=== PATIENT | female | born 1985 | race Caucasian/White ===

== ENCOUNTER 2017-01-14 00:14 | Emergency (ER) | payer MEDICAID ==
[2017-01-14] MEDS ORDERED: diphenhydrAMINE INJ 50 MG/ML VIAL IVP STA (00:32)
[2017-01-14] MEDS ORDERED: KETOROLAC 30 MG/ML VIAL IVP STA (00:32)
[2017-01-14] MEDS ORDERED: PROMETHAZINE INJ 25 MG in SODIUM CHLORIDE 0.9% 50 ML IV STA (00:32)
[2017-01-14] MEDS ORDERED: PROMETHAZINE 25 MG/1 ML VIAL ONE (00:36)
[2017-01-14] MEDS ORDERED: diphenhydrAMINE INJ 50 MG/ML VIAL ONE (00:36)
[2017-01-14] MEDS ORDERED: KETOROLAC 30 MG/ML VIAL ONE (00:36)
== END 2017-01-14 01:57 | disposition home or self-care (01) ==
DX: R51 Headache (principal); Z87.891 Personal history of nicotine dependence

== ENCOUNTER 2018-10-04 17:43 | Emergency (ER) | payer SELFPAY ==
[2018-10-04] MEDS ORDERED: diphenhydrAMINE INJ 50 MG/ML VIAL IVP STA (18:02)
[2018-10-04] MEDS ORDERED: KETOROLAC 60 MG/2 ML VIAL IVP STA (18:02)
[2018-10-04] MEDS ORDERED: PROMETHAZINE INJ 25 MG in SODIUM CHLORIDE 0.9% 50 ML IV STA (18:02)
--- NOTE | 2018-10-04 18:05 | ED Physician Documentation ---
PD HPI HEADACHE - Stated complaint Stated Complaint: MIGRAINE - Chief complaint Chief Complaint: Neuro - History obtained from History obtained from: Patient - History of Present Illness Timing - onset: Today (She had a gradual onset Global headache similar to prior migraines which she gets several times a year. This 1 is the worst she has had in a while but not the worst ever. She vomited once and she is light sensitive. No fevers or recent travel. 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 HEENT: Myringotomy (tubes) - Present Medications Home Medications: Ambulatory Orders Medication Instructions Recorded Confirmed Omeprazole [PriLOSEC] 20 mg PO DAILY 09/05/16 10/17/16 Albuterol Sulfate [Proair Hfa 1 puffs PO DAILY 09/11/16 10/17/16 Inhaler] Phenylephrine HCl [Nasal 10 mg PO DAILY 10/13/16 10/17/16 Decongestant PE] SUMAtriptan [Imitrex] 25 mg PO BID PRN #10 tablet 10/04/18 - Allergies Allergies/Adverse Reactions: Allergies Allergy/AdvReac Type Severity Reaction Status Date / Time acetaminophen [From Vicodin] Allergy Unknown Verified 10/04/18 17:52 adhesive Allergy Unknown Verified 10/04/18 17:52 codeine Allergy Unknown Verified 10/04/18 17:52 hydrocodone bitartrate * Allergy Unknown Verified 10/04/18 17:52 [From Vicodin] iron Allergy Unknown Verified 10/04/18 17:52 oxycodone HCl * Allergy Hives Verified 10/04/18 17:52 [From Percocet] Penicillins Allergy Unknown Verified 10/04/18 17:52 hydromorphone HCl * AdvReac Nausea Verified 10/04/18 17:52 [From Dilaudid] clavulonate Allergy Unknown Uncoded 10/04/18 17:52 - Social History Does the pt smoke?: No Smoking Status: Former smoker Does the pt drink ETOH?: No Does the pt have substance abuse?: No - Immunizations Immunizations are current?: Yes - POLST Patient has POLST: No PD ED PE NORMAL - Vitals Vital signs reviewed: Yes - General General: Alert and oriented X 3, No acute distress - HEENT HEENT: PERRL, EOMI - Neck Neck: Supple, no meningeal sign, No bony TTP - Neuro Neuro: Alert and 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 As such I doubt subarachnoid hemorrhage. There are no infectious symptoms such as fever or stiff neck to make me suspect meningitis. No carbon monoxide exposure by history. After the administration of IV Toradol, fluids, Benadryl, and Phenergan she was feeling much better and requested discharge. Departure - Departure Disposition: 01 Home, Self Care Clinical Impression: Migraine Qualifiers: Migraine type: with aura Status migrainosus presence: with status migrainosus Intractability: not intractable Qualified Code(s): G43.101 - Migraine with aura, not intractable, with status migrainosus Condition: Good Record reviewed to determine appropriate education?: Yes Instructions: ED Headache Migraine Prescriptions: SUMAtriptan [Imitrex] 25 mg PO BID PRN #10 tablet PRN Reason: Headache Comments: Call your doctor to arrange a follow-up appointment, make the next available appointment. In the interim, return anytime if worse or if new symptoms develop. Your blood pressure was elevated today on check into the emergency department. This does not mean that you have hypertension, it is a common phenomenon to come to the emergency department and have elevated blood pressure. I recommend that you see your primary care physician within the week to have it rechecked when you are feeling better.
[2018-10-04] MEDS ORDERED: SODIUM CHLORIDE 0.9% 1,000 ML IV ONE (18:09)
[2018-10-04 18:55] VITALS: BP 155/89
== END 2018-10-04 19:17 | disposition home or self-care (01) ==
LOC: ED 17:43
DX: G43.101 Migraine with aura, not intractable, with status migrainosus (principal); R03.0 Elevated blood-pressure reading, without diagnosis of hypertension; Z87.891 Personal history of nicotine dependence
CPT/HCPCS: 96365; 96375; 99283; J1200; J7040

== ENCOUNTER 2018-11-14 19:23 | Emergency (ER) | payer SELFPAY ==
[2018-11-14] MEDS ORDERED: ALBUTEROL NEB 2.5 MG/3 ML INH STA (20:57)
--- NOTE | 2018-11-14 20:58 | XRAY Report ---
Reason: cough Procedure Date: 11/14/2018 Accession Number: [id number] / [id number] Procedure: XR - Chest 2 View X-Ray CPT Code: 14973 FULL RESULT: EXAM: CHEST RADIOGRAPHY EXAM DATE: 11/14/2018 08:43 PM. CLINICAL HISTORY: Cough for 3 days. COMPARISON: CHEST 2 VIEW PA/LAT 09/01/2015 10:37 PM. TECHNIQUE: 2 views. FINDINGS: Lungs/Pleura: No focal opacities evident. No pleural effusion. No pneumothorax. Normal volumes. Mediastinum: Heart and mediastinal contours are unremarkable. Other: Minimal S-shaped scoliosis. IMPRESSION: Clear lungs. RADIA
--- NOTE | 2018-11-14 21:06 | ED Physician Documentation ---
PD HPI URI - Stated complaint Stated Complaint: SOA - Chief complaint Chief Complaint: Resp - History obtained from History obtained from: Patient, Family - History of Present Illness Timing - onset: How many days ago (3) Timing duration: Days (3) Timing details: Gradual onset Pain level max: 3 Pain level now: 2 Associated symptoms: Fever (subjective), Chills, Sweats, Nasal congestion, Rhinorrhea, Sore throat, Dry cough, Dyspnea (wheezing). No: Sinus pain, Hemoptysis, Chest pain Contributing factors: Sick contact, COPD / asthma (out of inhaler x 1 month) Improves by: Rest Worsened by: Activity, Breathing Similar symptoms before: Diagnosis (URI, asthma) Recently seen: Not recently seen Review of Systems Ten Systems: 10 systems reviewed and negative Constitutional: denies: Fever, Chills Ears: denies: Ear pain Nose: reports: Rhinorrhea / runny nose, Congestion Throat: reports: Sore throat Respiratory: reports: Cough, Wheezing GI: denies: Abdominal Pain, Nausea, Vomiting, Diarrhea : denies: Dysuria, Now EGA Skin: denies: Rash Musculoskeletal: denies: Neck pain, Back pain Neurologic: denies: Focal weakness, Numbness, Headache PD PAST MEDICAL HISTORY - Past Medical History Past Medical History: Yes Cardiovascular: None Respiratory: Asthma Endocrine/Autoimmune: None HEENT: Chronic hearing loss Musculoskeletal: Chronic back pain - Past Surgical History 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, 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 HEENT: Myringotomy (tubes) - Present Medications Home Medications: Ambulatory Orders Medication Instructions Recorded Confirmed Omeprazole [PriLOSEC] 20 mg PO DAILY 09/05/16 11/14/18 Albuterol Sulfate [Proair Hfa 1 puffs PO DAILY 09/11/16 11/14/18 Inhaler] Phenylephrine HCl [Nasal 10 mg PO DAILY 10/13/16 11/14/18 Decongestant PE] SUMAtriptan [Imitrex] 25 mg PO BID PRN #10 tablet 10/04/18 11/14/18 Albuterol Sulf [Ventolin Hfa 1 - 2 puffs INH Q4HR PRN #1 inhaler 11/14/18 Inhaler] Benzonatate [Tessalon Perle] 100 - 200 mg PO TID PRN #30 capsule 01/25/19 - Allergies Allergies/Adverse Reactions: Allergies Allergy/AdvReac Type Severity Reaction Status Date / Time acetaminophen [From Vicodin] Allergy Unknown Verified 11/14/18 19:35 adhesive Allergy Unknown Verified 11/14/18 19:35 codeine Allergy Unknown Verified 11/14/18 19:35 hydrocodone bitartrate * Allergy Unknown Verified 11/14/18 19:35 [From Vicodin] iron Allergy Unknown Verified 11/14/18 19:35 oxycodone HCl * Allergy Hives Verified 11/14/18 19:35 [From Percocet] Penicillins Allergy Unknown Verified 11/14/18 19:35 hydromorphone HCl * AdvReac Nausea Verified 11/14/18 19:35 [From Dilaudid] clavulonate Allergy Unknown Uncoded 11/14/18 19:35 - Social History Does the pt smoke?: No Smoking Status: Never smoker Does the pt drink ETOH?: No Does the pt have substance abuse?: No Substance Use and Type: Marijuana - Immunizations Immunizations are current?: Yes - POLST Patient has POLST: No PD ED PE NORMAL - Vitals Vital signs reviewed: Yes - General General: Alert and oriented X 3, No acute distress - HEENT HEENT: Ears normal, Moist mucous membranes, Pharynx benign - Neck Neck: Supple, no meningeal sign, No bony TTP - Cardiac Cardiac: RRR, Strong equal pulses - Respiratory Respiratory: No respiratory distress, Other (Decreased breath sounds bilaterally, mild wheezing.) - Abdomen Abdomen: Soft, Non tender, Non distended - Back Back: No CVA TTP - Derm Derm: Warm and dry - Neuro Neuro: Alert and oriented X 3 - Psych Psych: Normal mood, Normal affect Results - Vitals Vitals: Vital Signs - 24 hr 11/14/18 11/14/18 19:29 21:45 Temperature 36.4 C L 37.1 C Heart Rate 80 89 Respiratory 20 16 Rate Blood Pressure 134/80 H 153/89 H O2 Saturation 98 95 Oxygen O2 Source Room air - Rads (name of study) cxr Radiology: Prelim report reviewed, EMP read contemporaneously, See rad report (No acute disease ) PD MEDICAL DECISION MAKING - ED course Complexity details: reviewed results, re-evaluated patient, considered differential, d/w patient ED course: 33-year-old female with what appears to be a viral upper respiratory infection with secondary asthma exacerbation. Feels better after nebulizer treatment. No hypoxia or respiratory distress. Denies any possibility of . Will refill her inhaler for her and place her on cough medication for home. She is well-appearing, nontoxic. No evidence of pneumonia. Patient counseled regarding signs and symptoms for which I believe and urgent re-evaluation would be necessary. Patient with good understanding of and agreement to plan and is comfortable going home at this time This document was made in part using voice recognition software. While efforts are made to proofread this document, sound alike and grammatical errors may occur. Departure - Departure Disposition: Home, Self Care Clinical Impression: Viral URI Asthma Qualifiers: Asthma severity: unspecified severity Asthma persistence: unspecified Asthma complication type: unspecified Qualified Code(s): J45.909 - Unspecified asthma, uncomplicated Condition: Good Instructions: ED URI Viral Follow-Up: Mckenzie Lyman MD [Primary Care Provider] - Within 1 week Prescriptions: Albuterol Sulf [Ventolin Hfa Inhaler] 1 - 2 puffs INH Q4HR PRN #1 inhaler PRN Reason: Shortness Of Air/Wheezing Benzonatate [Tessalon Perle] 100 - 200 mg PO TID PRN #30 capsule PRN Reason: Cough Comments: Drink plenty of fluids and rest. Return if you worsen. Use the inhaler as prescribed. Forms: Activity restrictions Discharge Date/Time: 11/14/18 22:02
[2018-11-14 21:46] VITALS: BP 153/89
== END 2018-11-14 22:02 | disposition home or self-care (01) ==
LOC: ED 19:23
DX: J06.9 Acute upper respiratory infection, unspecified (principal); B97.89 Other viral agents as the cause of diseases classified elsewhere; J45.901 Unspecified asthma with (acute) exacerbation
CPT/HCPCS: 71046; 94640; 99283

== ENCOUNTER 2021-10-02 16:57 | Emergency (ER) | payer SELFPAY ==
--- NOTE | 2021-10-02 17:43 | ED Physician Documentation ---
History of Present Illness - Stated complaint Stated Complaint: BACK/NECK PX - Chief complaint Chief Complaint: Back Pain - Additonal information Additional information: 36-year-old female presents the emergency department for evaluation of acute on chronic upper back and neck pain. She reports that pain in her upper back has been present for about 3 months but progressively worse as she has developed a lump in her upper back that is gone larger in size. Anytime she puts pressure on this lump it causes a shooting pain into both of her arms as well as spasm in the upper back. Her primary doctor has ordered an ultrasound of the lump but due to insurance concerns has been unable to get this scheduled. No fevers. No falls or trauma. She has multiple medication allergies and has been using heat and ibuprofen with minimal relief. 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 HEENT: Myringotomy (tubes) - Present Medications Home Medications: Ambulatory Orders Medication Instructions Recorded Confirmed Omeprazole [PriLOSEC] 20 mg PO DAILY 09/05/16 10/02/21 Albuterol Sulfate [Proair Hfa 1 puffs PO DAILY 09/11/16 10/02/21 Inhaler] Albuterol Sulf [Ventolin Hfa 1 - 2 puffs INH Q4HR PRN #1 inhaler 11/14/18 10/02/21 Inhaler] methocarbamoL [Methocarbamol] 750 mg PO BID PRN #15 tablet 10/02/21 - Allergies Allergies/Adverse Reactions: Allergies Allergy/AdvReac Type Severity Reaction Status Date / Time acetaminophen [From Vicodin] Allergy Unknown Verified 10/02/21 17:10 adhesive Allergy Unknown Verified 10/02/21 17:10 codeine Allergy Unknown Verified 10/02/21 17:10 hydrocodone bitartrate * Allergy Unknown Verified 10/02/21 17:10 [From Vicodin] iron Allergy Unknown Verified 10/02/21 17:10 oxycodone HCl * Allergy Hives Verified 10/02/21 17:10 [From Percocet] Penicillins Allergy Unknown Verified 10/02/21 17:10 hydromorphone HCl * AdvReac Nausea Verified 10/02/21 17:10 [From Dilaudid] clavulonate Allergy Unknown Uncoded 10/02/21 17:10 - Social History Does the pt smoke?: No Smoking Status: Never smoker Does the pt drink ETOH?: No Does the pt have substance abuse?: No - Immunizations Immunizations are current?: Yes - POLST Patient has POLST: No PD ED PE EXPANDED - General General: Alert, No acute distress - Neck Neck: Supple w/out meningeal sx. No: Adenopathy, Soft tissue TTP, Bony TTP, Limited ROM - Cardiac Cardiac: Regular Rate, Radial strong equal, Pedal strong equal, Cap refill < 2 sec. No: Murmur Present - Derm Derm: Other (large 6x6 cm firm, non-mobile mass upper back at junction of nect/cervical spine. no erythema. no flucutance) - Extremities Extremities: Other (motor strength 5/5 BUE) Results - Vitals Vitals: Vital Signs - 24 hr 10/02/21 16:59 Temperature 36.6 C Heart Rate 91 Respiratory 16 Rate Blood Pressure 165/106 H O2 Saturation 100 Oxygen O2 Source Room air - Rads (name of study) soft tissue chest Radiology: Final report received (Avoid hypoechoic lesion measuring 1.3 x 1.6 cm in greatest dimension. Does not demonstrate vascularity. May represent a lipoma) PD MEDICAL DECISION MAKING - ED course Complexity details: reviewed results, re-evaluated patient, considered differential, d/w patient ED course: 36-year-old female presents emergency department for evaluation of upper back and neck pain in the area where a soft tissue mass has been growing over the last few months. On initial evaluation it was highly suspicious for a lipoma. Soft tissue ultrasound does confirm a hypoechoic ovoid lesion without vascularity most likely a lipoma. Patient has had this increase in size markedly over the last few months. Is likely putting pressure on the peripheral nerves and neck causing the pain. A limited prescription for methocarbamol will be sent to the pharmacy. Patient advised to establish with a primary care doctor to obtain referral for surgery for lipoma excision. Emergent return precautions were discussed. Departure - Departure Disposition: 01 Home, Self Care Clinical Impression: Lipoma Qualifiers: Lipoma location: neck Qualified Code(s): D17.0 - Benign lipomatous neoplasm of skin and subcutaneous tissue of head, face and neck Condition: Stable Record reviewed to determine appropriate education?: Yes Prescriptions: methocarbamoL [Methocarbamol] 750 mg PO BID PRN #15 tablet PRN Reason: Spasms Comments: Crystal you are seen in the ER today for upper back and neck pain at the site where a mass has been growing over the last few months. The ultrasound today suggest that it is most likely a lipoma. I suspect that is getting a large enough to put pressure on the tissues causing pain. In order to address this in the long-term a primary care provider will need to make a referral for you to go to a surgeon to have it excised. Please establish with a primary care doctor as soon as you can to obtain this referral. Continue to use Tylenol or ibuprofen for pain control. For the spasms that you develop I have sent a limited prescription for methocarbamol to the pharmacy. Please return to the ER if you have any pain in your neck that causes weakness in your arms or difficulty breathing or any concerns of infection
[2021-10-02] MEDS ORDERED: HYDROmorphone 1 MG/ML CARPUJECT IM STA (17:44)
[2021-10-02] MEDS ORDERED: ONDANSETRON ODT 4 MG TABLET TL STA (17:45)
--- NOTE | 2021-10-02 20:12 | Ultrasound Report ---
PROCEDURE: Chest INDICATIONS: LUMP UPPER BACK ? LIPOMA TECHNIQUE: Real-time scanning was performed of the dorsal soft tissues. COMPARISON: None. FINDINGS: An ovoid, hypoechoic lesion is seen in the area of clinical concern, measuring 1.3 x 0.6 x 1.6 cm, wh ich does not demonstrate internal vascularity. IMPRESSION: 1. Ovoid hypoechoic lesion in the area of clinical concern as detailed above, which may represent a l ipoma. Reviewed by: Marlo Lacy MD on 10/02/2021 8:11 PM PST Approved by: Marlo Lacy MD on 10/02/2021 8:11 PM PST Station ID: [id number]
[2021-10-02 20:33] VITALS: BP 163/94
== END 2021-10-02 20:34 | disposition home or self-care (01) ==
LOC: ED 16:57
DX: D17.0 Benign lipomatous neoplasm of skin and subcutaneous tissue of head, face and neck (principal); M54.6 Pain in thoracic spine; M54.2 Cervicalgia
CPT/HCPCS: 76604; 96372; 99283; 99284; J1170; Q0162

== ENCOUNTER 2022-01-26 13:17 | Outpatient (CLI) | payer OTHER | END 2022-01-26 13:18 | disposition home or self-care (01) | LOC: LAB.N 13:17 | PROVIDERS: ATTEND Surgery | DX: Z01.812 Encounter for preprocedural laboratory examination (principal); D17.0 Benign lipomatous neoplasm of skin and subcutaneous tissue of head, face and neck; Z20.822 Contact with and (suspected) exposure to COVID-19 ==

== ENCOUNTER 2022-01-29 13:29 | Day surgery (SDC) | payer OTHER ==
[2022-01-29] MEDS ORDERED: CEFAZOLIN SODIUM IN 0.9 % NACL 2 GM/50 ML BAG IV ONE (13:44)
--- NOTE | 2022-01-29 13:44 | ANESTHESIA ---
Pre-Anesthesia VS, & Labs - Diagnosis painful posterior neck lipoma - Procedure excision posterior neck lipoma Height: 5 ft 7 in - NPO >8 hours - Is Patient ?: Waiver signed - Lab Results Lab results reviewed: Yes Home Medications and Allergies Home Medications: Ambulatory Orders Ascorbic Acid [Vitamin C] 500 mg PO DAILY 01/22/22 Cetirizine [ZyrTEC] 10 mg PO DAILY 01/22/22 Cholecalciferol [Vitamin D3] 25 mcg PO DAILY 01/22/22 Ibuprofen [Motrin] 600 mg PO Q6H PRN 01/22/22 Pnv No.95/Ferrous Fum/Folic AC [ Caplet] 1 each PO DAILY 01/22/22 RX: Losartan Potassium 25 mg PO DAILY 01/22/22 methocarbamoL [Methocarbamol] 500 mg PO QID PRN 01/22/22 Omeprazole [PriLOSEC] 20 mg PO DAILY 09/05/16 Ascorbic Acid [Vitamin C] 500 mg PO DAILY 01/22/22 Cetirizine [ZyrTEC] 10 mg PO DAILY 01/22/22 Cholecalciferol [Vitamin D3] 25 mcg PO DAILY 01/22/22 Ibuprofen [Motrin] 600 mg PO Q6H PRN 01/22/22 Losartan Potassium 25 mg PO DAILY 01/22/22 Pnv No.95/Ferrous Fum/Folic AC [ Caplet] 1 each PO DAILY 01/22/22 methocarbamoL [Methocarbamol] 500 mg PO QID PRN 01/22/22 Allergies/Adverse Reactions: Allergies Allergy/AdvReac Type Severity Reaction Status Date / Time acetaminophen [From Vicodin] Allergy Unknown Verified 10/02/21 17:10 adhesive Allergy Rash Verified 01/22/22 10:57 codeine Allergy Rash Verified 01/22/22 10:57 hydrocodone bitartrate * Allergy Rash Verified 01/22/22 10:57 [From Vicodin] iron Allergy Rash Verified 01/22/22 10:57 oxycodone HCl * Allergy Hives Verified 10/02/21 17:10 [From Percocet] Penicillins Allergy Rash Verified 01/22/22 10:57 hydromorphone HCl * AdvReac Nausea Verified 10/02/21 17:10 [From Dilaudid] clavulonate Allergy Rash Uncoded 01/22/22 10:57 iron AdvReac Rash Uncoded 01/26/22 12:09 Anes History & Medical History - Anesthetic History Anesthesia Complications: reports: No previous complications Family history of Anesthesia Complications: Denies Family history of Malignant Hyperthermia: Denies - Medical History Cardiovascular: reports: Hypertension Pulmonary: reports: Asthma Gastrointestinal: reports: GERD Urinary: reports: Chronic bladder infection Musculoskeletal: reports: Chronic back pain Endocrine/Autoimmune: reports: None Skin: reports: None Smoking Status: Never smoker - Surgical History Eyes Ears Nose Throat (EENT): reports: Myringotomy (tubes) Gynecologic: reports: Tubal ligation Dermatologic: reports: Skin grafts Exam General: Alert, Oriented x3, Cooperative Dental: WNL Mouth Openin Fingerbreadth Neck Mobility: Normal Mallampati classification: II Thyromental Distance: 4-6 cm Respiratory: Lungs clear, Normal breath sounds, No respiratory distress Cardiovascular: Regular rate Neurological: Normal speech Mental/Cognitive Status: Alert/Oriented X3, Normal for patient Plan Anesthesia Type: General Consent for Procedure(s) Verified and Reviewed: Yes Code Status: Attempt Resuscitation ASA classification: 2-Mild systemic disease Is this case an emergency?: No
[2022-01-29] MEDS ORDERED: MIDAZOLAM 2 MG/2 ML VIAL ONE (13:48)
[2022-01-29] MEDS ORDERED: LIDOCAINE-MPF 2% 5 ML VIAL ONE (13:49)
[2022-01-29] MEDS ORDERED: fentaNYL 100 MCG/2 ML VIAL ONE (13:49)
[2022-01-29] MEDS ORDERED: LACTATED RINGERS 1,000 ML IV ONE ×2 (14:01→15:11)
[2022-01-29] MEDS ORDERED: METOCLOPRAMIDE 10 MG/2 ML VIAL IVP PRN (14:13)
[2022-01-29] MEDS ORDERED: NALOXONE 0.4 MG/ML VIAL IVP PRN (14:13)
[2022-01-29] MEDS ORDERED: ATROPINE ABBOJECT 1 MG/10 ML SYRINGE IVP PRN (14:13)
[2022-01-29] MEDS ORDERED: ONDANSETRON 4 MG/2 ML VIAL IVP PRN (14:13)
[2022-01-29] MEDS ORDERED: HYDROmorphone 0.5 MG/0.5 ML SYRINGE IVP PRN (14:13)
[2022-01-29] MEDS ORDERED: MORPHINE 2 MG/ML CARPUJECT IVP PRN (14:13)
[2022-01-29] MEDS ORDERED: ePHEDrine 50 MG/ML VIAL IVP PRN (14:13)
[2022-01-29] MEDS ORDERED: fentaNYL 100 MCG/2 ML VIAL IVP PRN (14:13)
[2022-01-29] MEDS ORDERED: LIDOCAINE MPF 2%-EPI 1:200000 20 ML VIAL ONE (14:13)
[2022-01-29] MEDS ORDERED: BUPIVACAINE 0.25% PF 30 ML VIAL ONE (14:13)
[2022-01-29] MEDS ORDERED: ONDANSETRON 4 MG/2 ML VIAL ONE (14:47)
[2022-01-29] MEDS ORDERED: DEXAMETHASONE 4 MG/ML VIAL ONE (14:47)
[2022-01-29] MEDS ORDERED: LIDOCAINE 2%-EPI 1:100000 20 ML MDV SUBQ ONE ×2 (14:53)
[2022-01-29] MEDS ORDERED: BUPIVACAINE 0.25% PF 30 ML VIAL SUBQ ONE ×2 (14:53)
[2022-01-29] MEDS ORDERED: LACTATED RINGERS 1,000 ML IV SCH (15:00)
--- NOTE | 2022-01-29 15:08 | OPERATIVE REPORT ---
Operative Report - General Procedure Date: 01/29/22 Planned Procedure: Excision of posterior neck lipoma Pre-Op Diagnosis: Painful posterior neck lipoma Procedure Performed: Excision of posterior neck lipoma Post Op Diagnosis: Painful posterior neck lipoma - Procedure Note Primary Surgeon: Marcella Anesthesia Provider: ANNA Morin Anesthesia Technique: General LMA, Local Pathology: 5 x 3 cm lipomatous mass to pathology in formalin Estimated Blood Loss (mL): 10 Findings: 5 x 3 cm lipomatous mass Complications: None apparent - Other Other Information/Narrative: After obtaining informed consent, the patient is brought the operating room and placed in the supine position on the examination table. Following successful induction of general anesthesia, she was turned to the right lateral decubitus position with appropriate padding of all bony prominences. A timeout was held per scope protocol. All elements of the surgical safety checklist were followed before, during, and after the procedure. The posterior neck region was prepped and draped in the standard surgical fashion. We began the procedure by infiltrating a mixture of local anesthetics directly over the skin into the skin over the lipomatous mass. An incision, previously marked, was created and carried through the skin and subcutaneous tissue to reveal a fairly well-circumscribed 5 x 3 cm x 2 cm lipomatous mass. This was excised sharply. Hemostasis was obtained with cautery. The wound was irrigated with warm saline solution and aspirated free of all fluid and particulate matter. The wound was then closed in 2 layers with Vicryl and Monocryl suture and Dermabond was applied to the skin. All sponge, needle, and instrument counts are correct at the conclusion of the case. The patient was allowed to wake from anesthesia without difficulty and taken to the postanesthesia care unit in good condition.
[2022-01-29] MEDS ORDERED: KETOROLAC 30 MG/ML VIAL ONE (15:10)
--- NOTE | 2022-01-29 15:39 | ANESTHESIA POST OP EVALUATION ---
Anesthesia Post Eval - Post Anesthesia Eval Vitals: Last Vital Signs Temp 37.3 C 01/29/22 15:36 Pulse 71 01/29/22 15:36 Resp 22 01/29/22 15:36 BP 191/94 H 01/29/22 15:36 Pulse Ox 98 01/29/22 15:36 CV Function Including HR & BP: Stable Pain Control: Satisfactory Nausea & Vomiting: Negative Mental Status: Baseline Respiratory Status: Airway Patent Hydration Status: Satisfactory Anesthesia Complications: None
[2022-01-29 15:53] VITALS: BP 188/87
== END 2022-01-29 13:30 | disposition home or self-care (01) ==
LOC: SDS 13:29
PROVIDERS: ATTEND Surgery
PROC: 0JB60ZZ Excision of Chest Subcutaneous Tissue and Fascia, Open Approach (ICD-10-PCS; principal; 2022-01-29 14:30)
DX: D17.0 Benign lipomatous neoplasm of skin and subcutaneous tissue of head, face and neck (principal); J45.909 Unspecified asthma, uncomplicated; Z86.14 Personal history of Methicillin resistant Staphylococcus aureus infection
CPT/HCPCS: 21552; J0690; J7120

== ENCOUNTER 2022-06-26 09:26 | Outpatient (CLI) | payer OTHER | END 2022-06-26 09:27 | disposition home or self-care (01) | LOC: SC 09:26 | PROVIDERS: ATTEND Nurse Practitioner Family | DX: G47.33 Obstructive sleep apnea (adult) (pediatric) (principal); R09.02 Hypoxemia; Z68.41 Body mass index [BMI] 40.0-44.9, adult | CPT/HCPCS: 95806 ==

== ENCOUNTER 2022-07-17 10:49 | Outpatient (CLI) | payer OTHER ==
[2022-07-17 11:39] VITALS: BP 142/98
--- NOTE | 2022-07-17 11:39 | SLEEP CARE CONSULTATION ---
Information from patient questionnaire entered by Natalie Moe. I have reviewed and concur with the information entered by Natalie Moe. This document represents the service I personally performed and the decisions made by me, Yas Pickard ARNP. History of Present Illness Service Date and Time: 07/17/2022 1049 Initial [place] Sleepiness Scale score: 7 (06/05/2022) Current [place] Sleepiness Scale score: 8 (07/17/22) Additional HPI information: CANDELARIO COHEN returns for follow up and results of the recently performed home sleep study. I explained the pathophysiology behind obstructive sleep apnea. We then spent quite a bit of time discussing different treatment options. For mild obstructive sleep apnea, surgery and oral appliance are alternatives to nasal CPAP therapy but in moderate or severe cases, nasal CPAP is the most effective and reliable treatment. Because apnea is primarily in supine position, then positional management therapy could be effective. Methods discussed such as positioning with pillows to prevent supine sleep. I reviewed the impact of weight changes on sleep apnea and strongly recommended losing weight. After some discussion, the patient opted to go with the nasal CPAP therapy. Nasal autoCPAP set at 4-15 cmH20 will be ordered with rationale explained. A manual titration study will be ordered if unable to find optimal pressure with office adjustments. I explained how CPAP machine works and what to expect when using the machine. Using CPAP every night in order to get used to it was emphasized. Patient advised to put CPAP mask on before getting into bed so as not to fall asleep without CPAP. To assist acclimation to CPAP use, it could also be used for a short time during day while reading or watching TV. The patient was instructed to call the CPAP supplier to discuss any mechanical problem that may occur. If the mask given is uncomfortable or is difficult to keep on through the night even with adjustment, contact the CPAP supplier as many will replace with another mask style if notified before 30 days. If snoring or perceives is not getting enough air or too much air from the machine, notify this office. Patient does not drink alcohol. Patient was cautioned about risks of drowsy driving until sleepiness symptoms resolve. Sleep Study - Results Type of Sleep Study: Home sleep study (DONE 06/26/22) Prior sleep studies: No Polysomnography/Home Sleep Study results: Physician Impression: The quality of the study is good. The length of the study is not optimal (< 240 minutes). Please also see the tabulated and graphic data. 1. Obstructive Sleep Apnea-Hypopnea (ICD-10 G47.33), severe, with an AHI of 42.2/hr and taylor SaO2 of 84%. During the study, the patient had 86 apneas (86 obstructive, 0 central, 0 mixed) and 58 hypopneas. The longest episode lasted 108.0 seconds. The respiratory events occurred more frequently during supine sleep (supine AHI was 80.0 and non-supine, 41.89). 2. Hypoxemia (ICD-10 R09.02), mild, with the lowest oxygen saturation of 84 % and 3.7 minutes with SaO2 under 90%. Baseline oxygen saturation was normal (Average oxygen saturation was 94%). Allergies and Home Medications Home medication list reviewed: Yes (started vitamin B; clindamycin for tooth/sinus infection) Allergy and home medication list: Allergies acetaminophen [From Vicodin] Allergy (Verified 10/02/21 17:10) Unknown adhesive Allergy (Verified 01/22/22 10:57) Rash codeine Allergy (Verified 01/22/22 10:57) Rash hydrocodone bitartrate * [From Vicodin] Allergy (Verified 01/22/22 10:57) Rash iron Allergy (Verified 01/22/22 10:57) Rash oxycodone HCl * [From Percocet] Allergy (Verified 10/02/21 17:10) Hives Penicillins Allergy (Verified 01/22/22 10:57) Rash hydromorphone HCl * [From Dilaudid] Adverse Reaction (Verified 10/02/21 17:10) Nausea Review of Systems Review of systems same as previous: Yes (dental or sinus infection) Physical Exam Vital signs obtained and entered by: EMMY GAN Blood Pressure: 142/98 (LEFT ARM ) Cuff size: regular Heart Rate: 87 O2 Saturation: 99 Height: 5 ft 7 in Weight: 252 lb Body Mass Index: 39.4 BMI Classification: Obese Impression and Plan 1. Obstructive Sleep Apnea-Hypopnea Syndrome, severe, with lowest oxygen saturation of 84%. Obviously this is the cause of the patients symptoms of unrefreshed sleep, and excessive daytime sleepiness. Positive pressure therapy could benefit hypertension, anxiety, depression, gastric reflux and asthma. As mentioned above, the patient will be started on nasal autoCPAP therapy with pressure set at 4-15 cmH2O. Compliance guidelines also reviewed. A copy of compliance guidelines will be given for reference at check out. Because the apnea is more severe supine, I instructed to avoid sleeping supine using pillow positioning until able to start CPAP use. * Nasal auto CPAP therapy, pressure at 4-15 cm H2O. * Attempt to lose weight. * Avoid alcohol consumption near bedtime. * Avoid supine sleep until using CPAP. * The patient is again cautioned about driving until sleepiness completely r esolves. * Return one month after CPAP obtained. I will assess response to therapy and compliance at that time. Counseling Topics: Weight loss health impact Visit Type: In Office Time Spent with Patient (minutes): 22 Provider Statement: I spent 100% of the Face to Face Visit with the patient with greater than 50% spent counseling the patient and coordination of care.
== END 2022-07-17 10:50 | disposition home or self-care (01) ==
LOC: SC 10:49
PROVIDERS: ATTEND Nurse Practitioner Family
DX: G47.33 Obstructive sleep apnea (adult) (pediatric) (principal); E66.9 Obesity, unspecified; Z68.39 Body mass index [BMI] 39.0-39.9, adult
CPT/HCPCS: 99212; 99213

== ENCOUNTER 2022-10-09 09:07 | Outpatient (CLI) | payer OTHER ==
--- NOTE | 2022-10-09 09:46 | SLEEP CARE CONSULTATION ---
Information from patient questionnaire entered by Álvaro Valentin. I have reviewed and concur with the information entered by Álvaro Valentin. This document represents the service I personally performed and the decisions made by me, Yas Pickard ARNP. History of Present Illness Service Date and Time: 10/09/2022 0907 Previous diagnosis: Severe, Obstructive Sleep Apnea-Hypopnea Syndrome AHI: 42.2 (in 2021) Reason for follow up: first compliance Equipment type: CPAP (RESMED Airsense 11) Equipment obtained from: [employer] ([employer]) Mask style: Full face Mask brand: Resmed (F20) Backup mask available: Yes (other mask) Last cushion change: 1 month Prior sleep studies: No Type of Sleep Study: Home sleep study (DONE 06/26/22) HPI additional information: CANDELARIO COHEN was diagnosed to have severe, AHI 42.2, obstructive sleep apnea- hypopnea syndrome and returned today for CPAP therapy first compliance follow- up. Sleep Study - Results Type of Sleep Study: Home sleep study (DONE 06/26/22) Prior sleep studies: No CPAP Compliance Data - Data Reviewed with Patient Average duration of nightly device use: 7 hours 3 mins Compliance rate %: 53 (19/30 days used) Current pressure setting (cmH2O): 4-15 (median 8.1, avg 11.7, max 13.2) Average residual AHI: 0.8 Central apnea: 0.1 Obstructive apnea: 0.5 Average large leak: 3.3 lpm Subjective Missed days of use due to: reports: illness (had a cold/hx of allergies and ear infections), other (power outage) Patient concerns: reports: condensation in mask/hose, nasal congestion (due to cold and allergies), other (ear pain). denies: aerophagia, mask discomfort, air blowing in eyes, mask leak noise, dry mouth, nose, throat, epistaxis Observed to snore while using device: No Current pressure setting perceived as: comfortable On therapy, patient: reports: sleeping better, awakening more refreshed, being more awake and alert during the day, more rested overall. denies: drowsiness while driving Initial [place] Sleepiness Scale score: 7 (06/05/2022) Current [place] Sleepiness Scale score: 6 (10/09/22) Allergies and Home Medications Drug allergies reviewed: Yes (as listed in EMR) Home medication list reviewed: Yes (no changes) Review of Systems Review of systems same as previous: Yes (sleep apnea 2021) Physical Exam Vital signs obtained and entered by: ÁLVARO Hernández MA Blood Pressure: 128/82 (LEFT ARM ) Cuff size: long Heart Rate: 82 O2 Saturation: 97 Height: 5 ft 7 in Weight: 255 lb 6.4 oz Body Mass Index: 39.9 BMI Classification: Obese Impression and Plan 1. Obstructive Sleep Apnea-Hypopnea Syndrome, severe, with fair treatment compliance and good apnea control. On CPAP therapy, the patient has better sleep quality and is more rested overall. Patient has been having some problem with nasal congestion because of having a cold and allergies. She was advised by provider at [facility] not to use her CPAP while she was sick because she is prone to ear infections and was having ear pain. She has since resumed CPAP use and is getting good results. The patients pressure will be changed to autoCPAP 8-14 cmH20 to reflect pressures being used. Patient advised to contact me if pressure change is uncomfortable so that it can be adjusted. Goals for apnea control discussed.Patient's apnea severity and rationale for treatment to reduce apnea, improve sleep quality and reduce cardiovascular and cerebrovascular events was reviewed. I also reviewed the benefit of consistent device use of CPAP for hypertension, gastric reflux, depression, anxiety and asthma. 2. Obesity, unspecified. Currently patients BMI is 39.9. Obesity increases the risk of apnea, CPAP pressure requirements and overall health risks especially cardiovascular and diabetes. Thus patient is advised to lose weight. * Change auto CPAP pressure to 8-14 cmH2O * Notify me if snoring with mask or feeling that the pressure is too much or too little * Attempt to lose weight * Call this office if any problems using CPAP * Return for follow up in 1-2 months, or sooner if concerns arise Counseling Topics: Spare mask, Weight loss health impact Visit Type: In Office Time Spent with Patient (minutes): 23 Provider Statement: I spent 100% of the Face to Face Visit with the patient with greater than 50% spent counseling the patient and coordination of care.
[2022-10-09 09:47] VITALS: BP 128/82
== END 2022-10-09 09:08 | disposition home or self-care (01) ==
LOC: SC 09:07
PROVIDERS: ATTEND Nurse Practitioner Family
DX: G47.33 Obstructive sleep apnea (adult) (pediatric) (principal); E66.9 Obesity, unspecified; Z68.39 Body mass index [BMI] 39.0-39.9, adult
CPT/HCPCS: 99212; 99213

== ENCOUNTER 2022-12-11 10:23 | Outpatient (CLI) | payer OTHER ==
[2022-12-11 11:06] VITALS: BP 138/84
--- NOTE | 2022-12-11 11:06 | SLEEP CARE CONSULTATION ---
Information from patient questionnaire entered by Laura Valentin. I have reviewed and concur with the information entered by Laura Valentin. This document represents the service I personally performed and the decisions made by , Yas Pickard ARNP. History of Present Illness Service Date and Time: 12/11/2022 1023 Previous diagnosis: Severe, Obstructive Sleep Apnea-Hypopnea Syndrome AHI: 42.2 (in 2021) Reason for follow up: other (2MONTH F/U) Equipment type: CPAP (RESMED Airsense 11; 08/2022) Equipment obtained from: [employer] (needs to get supplies) Mask style: Full face Backup mask available: No (will keep old mask when replaced) Last cushion change: not since setup Prior sleep studies: No Type of Sleep Study: Home sleep study (DONE 06/26/22) HPI additional information: CANDELARIO COHEN was diagnosed to have severe, AHI 42.2, obstructive sleep apnea- hypopnea syndrome and returned today for CPAP therapy two month follow-up. Sleep Study - Results Type of Sleep Study: Home sleep study (DONE 06/26/22) Prior sleep studies: No CPAP Compliance Data - Data Reviewed with Patient Average duration of nightly device use: 3 hours 58 minutes Compliance rate %: 30 (39/60 days) Current pressure setting (cmH2O): 8-14 Average residual AHI: 0.6 Central apnea: 0.0 Obstructive apnea: 0.4 Subjective Missed days of use due to: reports: mask issues, illness (has allergies) Patient concerns: reports: mask discomfort (mask pushing on face with some pain under right eye), air blowing in eyes, nasal congestion. denies: aerophagia, mask leak noise, condensation in mask/hose, dry mouth, nose, throat, epistaxis Observed to snore while using device: No Current pressure setting perceived as: comfortable On therapy, patient: reports: sleeping better, awakening more refreshed, being more awake and alert during the day, more rested overall. denies: drowsiness while driving Initial [place] Sleepiness Scale score: 7 (06/05/2022) Current [place] Sleepiness Scale score: 5 (12/11/22) Allergies and Home Medications Drug allergies reviewed: Yes (as listed in EMR) Home medication list reviewed: Yes (no changes) Review of Systems Review of systems same as previous: No (2 root canals, stye) Physical Exam Vital signs obtained and entered by: LAURA Hernández MA Blood Pressure: 138/84 (LEFT ARM) Cuff size: long Heart Rate: 88 O2 Saturation: 98 Height: 5 ft 7 in Weight: 253 lb Body Mass Index: 39.6 BMI Classification: Obese Impression and Plan 1. Obstructive Sleep Apnea-Hypopnea Syndrome, severe, with poor treatment compliance and good apnea control. On CPAP therapy, the patient has better sleep quality and is more rested overall. Patient having issues with wearing her Resmed F20 because of the pressure placed under her eye. She did see her doctor and dentist who took care of 2 root canals and styes in that eye but she continues to have discomfort when wearing her mask. I advised her to try a different full face mask and had her fitted to a [employer]wear full face hybrid. She denied any implants in either her or her which are not recommended with the magnets of this mask. I will have her try this mask to increase her compliance and have her check back with us in 1-2 months. Patient's apnea severity and rationale for treatment to reduce apnea, improve sleep quality and reduce cardiovascular and cerebrovascular events was reviewed. I also reviewed the benefit of consistent device use of CPAP for hypertension, gastric reflux, depression, anxiety and asthma. 2. Obesity, unspecified. Currently patients BMI is 39.6. Obesity increases the risk of apnea, CPAP pressure requirements and overall health risks especially cardiovascular and diabetes. Thus patient is advised to lose weight. * Continue auto CPAP pressure at 8-14 cmH2O * Mask fitting for a [employer]it Dreamwear full face mask * Notify me if snoring with mask or feeling that the pressure is too much or too little * Attempt to lose weight * Call this office if any problems using CPAP * Return for follow up in 1-2 months, or sooner if concerns arise Mask provided: Yes Counseling Topics: Spare mask, Weight loss health impact Visit Type: In Office Time Spent with Patient (minutes): 22 Provider Statement: I spent 100% of the Face to Face Visit with the patient with greater than 50% spent counseling the patient and coordination of care.
== END 2022-12-11 10:24 | disposition home or self-care (01) ==
LOC: SC 10:23
PROVIDERS: ATTEND Nurse Practitioner Family
DX: G47.33 Obstructive sleep apnea (adult) (pediatric) (principal); E66.9 Obesity, unspecified; Z68.39 Body mass index [BMI] 39.0-39.9, adult
CPT/HCPCS: 99212; 99213

== ENCOUNTER 2023-01-22 10:26 | Outpatient (CLI) | payer OTHER ==
[2023-01-22 11:07] VITALS: BP 152/100
--- NOTE | 2023-01-22 11:07 | SLEEP CARE CONSULTATION ---
Information from patient questionnaire entered by Álvaro Valentin. I have reviewed and concur with the information entered by Álvaro Valentin. This document represents the service I personally performed and the decisions made by me, Yas Pickard ARNP. History of Present Illness Service Date and Time: 01/22/2023 1026 Previous diagnosis: Severe, Obstructive Sleep Apnea-Hypopnea Syndrome AHI: 42.2 (in 2021) Reason for follow up: other (6 WEEK F/U ) Equipment type: CPAP (RESMED Airsense 11; s/u 08/2022; MACHINE OR SD CARD NEEDED) Equipment obtained from: [employer] (getting supplies) Mask style: Full face Mask brand: [employer]ics ([employer]) Backup mask available: Yes (other mask) Last cushion change: 6 weeks Prior sleep studies: No Type of Sleep Study: Home sleep study (DONE 06/26/22) HPI additional information: CANDELARIO COHEN was diagnosed to have severe, AHI 42.2, obstructive sleep apnea- hypopnea syndrome and returned today for CPAP therapy six week follow-up. Sleep Study - Results Type of Sleep Study: Home sleep study (DONE 06/26/22) Prior sleep studies: No CPAP Compliance Data - Data Reviewed with Patient Average duration of nightly device use: 4 hours 26 minutes Compliance rate %: 50 ( days used) Current pressure setting (cmH2O): 8-14 Average residual AHI: 0.7 Central apnea: 0.0 Obstructive apnea: 0.4 Hypopnea: 0.2 Average large leak: 0.8 lpm Subjective Missed days of use due to: reports: illness, other (power outage; fell asleep without it) Patient concerns: reports: mask discomfort (improving), air blowing in eyes (needs to change mask cushion), nasal congestion, other (allergies/ear history causes pain in ear at times after mask use; sensitive around my face). denies: aerophagia, mask leak noise, condensation in mask/hose, dry mouth, nose, throat, epistaxis Observed to snore while using device: No Current pressure setting perceived as: comfortable On therapy, patient: reports: sleeping better, awakening more refreshed, being more awake and alert during the day, more rested overall. denies: drowsiness while driving Initial [place] Sleepiness Scale score: 7 (06/05/2022) Current [place] Sleepiness Scale score: 8 (01/22/23) Allergies and Home Medications Known drug allergies: Yes (as listed) Drug allergies reviewed: Yes Home medication list reviewed: Yes (no changes) Allergy and home medication list: Allergies acetaminophen [From Vicodin] Allergy (Verified 12/11/22 10:41) Unknown adhesive Allergy (Verified 12/11/22 10:41) Rash codeine Allergy (Verified 12/11/22 10:41) Rash hydrocodone bitartrate * [From Vicodin] Allergy (Verified 12/11/22 10:41) Rash iron Allergy (Verified 12/11/22 10:41) Rash oxycodone HCl * [From Percocet] Allergy (Verified 12/11/22 10:41) Hives Penicillins Allergy (Verified 12/11/22 10:41) Rash hydromorphone HCl * [From Dilaudid] Adverse Reaction (Verified 12/11/22 10:41) Nausea Review of Systems Review of systems same as previous: Yes (no changes) Physical Exam Vital signs obtained and entered by: ÁLVARO Hernández MA Blood Pressure: 152/100 (LEFT ARM) Cuff size: long Heart Rate: 84 O2 Saturation: 8 Height: 5 ft 7 in Weight: 254 lb 6.4 oz Body Mass Index: 39.8 BMI Classification: Obese Impression and Plan 1. Obstructive Sleep Apnea-Hypopnea Syndrome, severe, with fair treatment compliance and good apnea control. On CPAP therapy, the patient has better sleep quality and is more rested overall. Patient has been working on getting her compliance up. She will fall asleep without the mask on but is trying to put the mask on when she lays down to prevent herself from falling asleep before putting it on. She has been getting some pressure in her ears and has been trying to reduce the congestion in her ears that comes from history of ear issues and allergies. She also has sensitive eyes to air blowing in her face and has ordered a sleeping mask to cover her eyes. She is finding the full face mask Dreamwear that we fitted her to the most comfortable that she has tried. She needs to order some more mask cushions. Patient's apnea severity and rationale for treatment to reduce apnea, improve sleep quality and reduce cardiovascular and cerebrovascular events was reviewed. I also reviewed the benefit of consistent device use of CPAP for hypertension, gastric reflux, depression, anxiety and asthma. 2. Obesity, unspecified. Currently patients BMI is 39.8. Obesity increases the risk of apnea, CPAP pressure requirements and overall health risks especially c ardiovascular and diabetes. Thus patient is advised to continue to try to lose weight. * Continue auto CPAP pressure at 8-14 cmH2O * Notify me if snoring with mask or feeling that the pressure is too much or too little * Attempt to lose weight * Call this office if any problems using CPAP * Return for follow up in 1-2 months, or sooner if concerns arise Counseling Topics: Spare mask, Weight loss health impact Visit Type: In Office Time Spent with Patient (minutes): 23 Provider Statement: I spent 100% of the Face to Face Visit with the patient with greater than 50% spent counseling the patient and coordination of care.
== END 2023-01-22 10:27 | disposition home or self-care (01) ==
LOC: SC 10:26
PROVIDERS: ATTEND Nurse Practitioner Family
DX: G47.33 Obstructive sleep apnea (adult) (pediatric) (principal); E66.9 Obesity, unspecified; Z68.39 Body mass index [BMI] 39.0-39.9, adult
CPT/HCPCS: 99212; 99213

== ENCOUNTER 2023-04-16 14:04 | Outpatient (CLI) | payer OTHER ==
--- NOTE | 2023-04-16 14:39 | SLEEP CARE CONSULTATION ---
Information from patient questionnaire entered by Álvaro Valentin. I have reviewed and concur with the information entered by Álvaro Valentin. This document represents the service I personally performed and the decisions made by me, Yas Pickard ARNP. History of Present Illness Service Date and Time: 04/16/2023 1404 Previous diagnosis: Severe, Obstructive Sleep Apnea-Hypopnea Syndrome AHI: 42.2 (in 2021) Reason for follow up: other (2 MONTH F/U) Equipment type: CPAP (RESMED Airsense 11; 08/2022 POSSIBLE SD CARD) Equipment obtained from: [employer] (getting supplies) Mask style: Full face Mask brand: Respironics (Dreamwear) Backup mask available: Yes (old mask) Last cushion change: 1 month Prior sleep studies: No Type of Sleep Study: Home sleep study (DONE 06/26/22) HPI additional information: CANDELARIO COHEN was diagnosed to have severe, AHI 42.2, obstructive sleep apnea- hypopnea syndrome and returned today for CPAP therapy two month follow-up. Sleep Study - Results Type of Sleep Study: Home sleep study (DONE 06/26/22) Prior sleep studies: No CPAP Compliance Data - Data Reviewed with Patient Average duration of nightly device use: 4 hours 21 minutes Compliance rate %: 47 (50/60 days used) Average residual AHI: 1.8 Central apnea: 0 Obstructive apnea: 0.7 Average large leak: 8.3 l/min Subjective Missed days of use due to: reports: illness, travel, other (falling asleep without it; power outage) Patient concerns: reports: nasal congestion (overall, not just with CPAP), other (headache-not due to CPAP). denies: aerophagia, mask discomfort, air blowing in eyes, mask leak noise, condensation in mask/hose, dry mouth, nose, throat, epistaxis Observed to snore while using device: No Current pressure setting perceived as: comfortable On therapy, patient: reports: sleeping better, awakening more refreshed, being more awake and alert during the day, more rested overall. denies: drowsiness while driving Initial [place] Sleepiness Scale score: 7 (06/05/2022) Current [place] Sleepiness Scale score: 7 (04/16/23) Allergies and Home Medications Known drug allergies: Yes (as listed) Drug allergies reviewed: Yes Home medication list reviewed: Yes (escitalopram 10 mg) Allergy and home medication list: Allergies acetaminophen [From Vicodin] Allergy (Verified 04/15/23 16:19) Unknown adhesive Allergy (Verified 04/15/23 16:19) Rash codeine Allergy (Verified 04/15/23 16:19) Rash hydrocodone bitartrate * [From Vicodin] Allergy (Verified 04/15/23 16:19) Rash iron Allergy (Verified 04/15/23 16:19) Rash oxycodone HCl * [From Percocet] Allergy (Verified 04/15/23 16:19) Hives Penicillins Allergy (Verified 04/15/23 16:19) Rash hydromorphone HCl * [From Dilaudid] Adverse Reaction (Verified 04/15/23 16:19) Nausea Review of Systems Review of systems same as previous: No (clinical diagnosed PTSD) Physical Exam Vital signs obtained and entered by: ÁLVARO Hernández MA Blood Pressure: 128/78 (LEFT ARM) Cuff size: long Heart Rate: 76 O2 Saturation: 98 Height: 5 ft 7 in Weight: 255 lb Body Mass Index: 39.9 BMI Classification: Obese Impression and Plan 1. Obstructive Sleep Apnea-Hypopnea Syndrome, severe, with fair treatment compliance and good apnea control. On CPAP therapy, the patient has better sleep quality and is more rested overall. She states that she was diagnosed with PTSD with depression and started on escitalopram. She feels that she is doing better and is trying to use her CPAP more. She is dedicated to using her CPAP and has good support from her partner to put her mask on at night. She has been falling asleep without the mask on and is going to try to put it on when looking at her phone at night to try not to fall asleep without the mask on her face. I will h ave her come back and check on her compliance in 1-2 months. Patient's apnea severity and rationale for treatment to reduce apnea, improve sleep quality and reduce cardiovascular and cerebrovascular events was reviewed. I also reviewed the benefit of consistent device use of CPAP for hypertension, gastric reflux, depression, anxiety, and asthma. 2. Obesity, unspecified. Currently patients BMI is 39.9. Obesity increases the risk of apnea, CPAP pressure requirements and overall health risks especially cardiovascular and diabetes. Thus patient is advised to lose weight. * Continue auto CPAP pressure at 8-14 cmH2O * Notify me if snoring with mask or feeling that the pressure is too much or too little * Attempt to lose weight * Call this office if any problems using CPAP * Return for follow up in 1-2 months, or sooner if concerns arise Counseling Topics: Spare mask, Weight loss health impact Follow up with Sleep Care in: 1-2 months Visit Type: In Office Time Spent with Patient (minutes): 21 Provider Statement: I spent 100% of the Face to Face Visit with the patient with greater than 50% spent counseling the patient and coordination of care.
[2023-04-16 14:45] VITALS: BP 128/78
== END 2023-04-16 14:05 | disposition home or self-care (01) ==
LOC: SC 14:04
PROVIDERS: ATTEND Nurse Practitioner Family
DX: G47.33 Obstructive sleep apnea (adult) (pediatric) (principal); E66.9 Obesity, unspecified; Z68.39 Body mass index [BMI] 39.0-39.9, adult
CPT/HCPCS: 99212; 99213

== ENCOUNTER 2023-06-18 10:49 | Outpatient (CLI) | payer OTHER ==
--- NOTE | 2023-06-18 11:24 | Sleep Patient Instructions ---
Sleep Center Visit Summary - Patient Visit Information Reason for Visit: Two month followup for PAP therapy - Patient Instructions Additional Instructions: You were here for follow up of CPAP therapy. You will be continued on CPAP therapy with pressure at 8-14 cmH2O. You should follow up with sleep care in 6 months. You may contact us sooner for any questions or concerns. - Clinic Information Contact: [facility] [address] [place] [email or web address] T: [phone]
--- NOTE | 2023-06-18 11:28 | SLEEP CARE CONSULTATION ---
Information from patient questionnaire entered by Álvaro Valentin. I have reviewed and concur with the information entered by Álvaro Valentin. This document represents the service I personally performed and the decisions made by me, Yas Pickard ARNP. History of Present Illness Service Date and Time: 06/18/2023 1049 Previous diagnosis: Severe, Obstructive Sleep Apnea-Hypopnea Syndrome AHI: 42.2 (in 2021) Reason for follow up: other (2 MONTH F/U) Equipment type: CPAP (RESMED Airsense 11; 08/2022 POSSIBLE SD CARD) Equipment obtained from: [employer] (getting supplies) Mask style: Full face Mask brand: Respironics (Dreamwear, small cushion) Backup mask available: Yes (older mask) Last cushion change: 2 months Prior sleep studies: No Type of Sleep Study: Home sleep study (DONE 06/26/22) HPI additional information: CANDELARIO COHEN was diagnosed to have severe, AHI 42.2, obstructive sleep apnea- hypopnea syndrome and returned today for CPAP therapy two month follow-up. Sleep Study - Results Type of Sleep Study: Home sleep study (DONE 06/26/22) Prior sleep studies: No CPAP Compliance Data - Data Reviewed with Patient Average duration of nightly device use: 5 hours 14 minutes Compliance rate %: 75 (53/60 days used) Current pressure setting (cmH2O): 8-14 Average residual AHI: 2.8 Central apnea: 0 Obstructive apnea: 1.4 Hypopnea: 1.2 Average large leak: 3.6 L/min Subjective Missed days of use due to: reports: mask issues, illness (sinus and double ear infection) Patient concerns: reports: mask leak noise, other (needs new mask parts, can't afford co-pay). denies: aerophagia, mask discomfort, air blowing in eyes, condensation in mask/hose, nasal congestion, dry mouth, nose, throat, epistaxis Observed to snore while using device: No Current pressure setting perceived as: comfortable On therapy, patient: reports: sleeping better, awakening more refreshed, being more awake and alert during the day, more rested overall. denies: drowsiness while driving Initial [place] Sleepiness Scale score: 7 (06/05/2022) Current [place] Sleepiness Scale score: 5 (06/18/23) Allergies and Home Medications Known drug allergies: Yes (as listed) Drug allergies reviewed: Yes Home medication list reviewed: Yes (no changes) Allergy and home medication list: Allergies acetaminophen [From Vicodin] Allergy (Verified 06/17/23 09:32) Unknown adhesive Allergy (Verified 06/17/23 09:32) Rash codeine Allergy (Verified 06/17/23 09:32) Rash hydrocodone bitartrate * [From Vicodin] Allergy (Verified 06/17/23 09:32) Rash iron Allergy (Verified 06/17/23 09:32) Rash oxycodone HCl * [From Percocet] Allergy (Verified 06/17/23 09:32) Hives Penicillins Allergy (Verified 06/17/23 09:32) Rash hydromorphone HCl * [From Dilaudid] Adverse Reaction (Verified 06/17/23 09:32) Nausea Review of Systems Review of systems same as previous: Yes (no changes) Physical Exam Vital signs obtained and entered by: ÁLVARO Hernández MA Blood Pressure: 132/80 (LEFT ARM) Cuff size: long Heart Rate: 65 O2 Saturation: 97 Height: 5 ft 7 in Weight: 255 lb 3.2 oz Body Mass Index: 39.9 BMI Classification: Obese Impression and Plan 1. Obstructive Sleep Apnea-Hypopnea Syndrome, severe, with good treatment compliance and good apnea control. On CPAP therapy, the patient has better sleep quality and is more rested overall. She has been able to bring up her compliance to 75% despite having a sinus and double ear infection. Patient has significant improvement of their sleep apnea and is satisfied with current CPAP therapy. Patient's apnea severity and rationale for treatment to reduce apnea, improve sleep quality and reduce cardiovascular and cerebrovascular events was reviewed. I also reviewed the benefit of consistent device use of CPAP for hypertension, gastric reflux, depression/anxiety, and asthma. 2. Obesity, unspecified. Currently patients BMI is 39.9. Obesity increases the risk of apnea, CPAP pressure requirements and overall health risks especially cardiovascular and diabetes. Thus patient is advised to lose weight. * Continue auto CPAP pressure at 8-14 cmH2O * Notify me if snoring with mask or feeling that the pressure is too much or too little * Attempt to lose weight * Call this office if any problems using CPAP * Return for follow up in 6 months, or sooner if concerns arise Counseling Topics: Spare mask, Weight loss health impact Visit Type: In Office Time Spent with Patient (minutes): 23 Provider Statement: I spent 100% of the Face to Face Visit with the patient with greater than 50% spent counseling the patient and coordination of care.
[2023-06-18 11:32] VITALS: BP 132/80; O2SAT 97
== END 2023-06-18 10:50 | disposition home or self-care (01) ==
LOC: SC 10:49
PROVIDERS: ATTEND Nurse Practitioner Family
DX: G47.33 Obstructive sleep apnea (adult) (pediatric) (principal); E66.9 Obesity, unspecified; Z68.39 Body mass index [BMI] 39.0-39.9, adult
CPT/HCPCS: 99212; 99213

== ENCOUNTER 2023-08-14 19:20 | Outpatient (CLI) | payer OTHER ==
--- NOTE | 2023-08-15 18:15 | XRAY Report ---
PROCEDURE: Toe(s) LT INDICATIONS: CONTUSION OF LEFT GREAT TOE TECHNIQUE: 2 views of the first toe(s) acquired. COMPARISON: None. FINDINGS: Bones: No fractures or dislocations. No suspicious bony lesions. Joint spaces are maintained. Soft tissues: No suspicious soft tissue densities. Mild soft tissue swelling. No radiopaque foreign body. IMPRESSION: No acute bony abnormality. Reviewed by: Tamy Jameson MD on 08/15/2023 6:14 PM PDT Approved by: Tamy Jameson MD on 08/15/2023 6:14 PM PDT Station ID: [id number]
== END 2023-08-14 19:21 | disposition home or self-care (01) ==
LOC: DI 19:20
PROVIDERS: ATTEND Nurse Practitioner
DX: S90.112A Contusion of left great toe without damage to nail, initial encounter (principal)
CPT/HCPCS: 73660

== ENCOUNTER 2023-09-28 21:49 | Emergency (ER) | payer OTHER ==
[2023-09-28 22:03] VITALS: BP 150/90; O2SAT 100
--- NOTE | 2023-09-28 22:33 | ED Physician Documentation ---
History of Present Illness - Stated complaint Stated Complaint: L FOOT PX - Chief complaint Chief Complaint: Ext Problem - History obtained from History obtained from: Patient - Additonal information Additional information: The patient comes to the emergency department chief complaint of spontaneous, nontraumatic left foot pain. She states she was just standing on the floor and had not just stepped down or pivoted when she suddenly felt a sharp pain shoot through her fourth and fifth toes. The patient states she did not notice any swelling but did notice that the toes looked pink and states that "I have dealt with MRSA before". She denies any fevers or chills. No erythematous streaking. No other complaints at this time. PD PAST MEDICAL HISTORY - Past Medical History Past Medical History: Yes Cardiovascular: Hypertension Respiratory: Asthma Endocrine/Autoimmune: None GI: GERD : Chronic bladder infection HEENT: Chronic vision loss, Chronic hearing loss Psych: Depression, Anxiety, Panic attacks Musculoskeletal: Chronic back pain Derm: None - Past Surgical History Past Surgical History: Yes /[employer]: Tubal ligation HEENT: Myringotomy (tubes) Derm: Skin grafts - Present Medications Home Medications: Ambulatory Orders Medication Instructions Recorded Confirmed Omeprazole [PriLOSEC] 20 mg PO DAILY 09/05/16 06/18/23 Albuterol Sulf [Ventolin Hfa 1 - 2 puffs INH Q4HR PRN #1 inhaler 11/14/18 06/18/23 Inhaler] Ascorbic Acid [Vitamin C] 500 mg PO DAILY 01/22/22 06/18/23 Cetirizine [ZyrTEC] 10 mg PO DAILY 01/22/22 06/18/23 Cholecalciferol [Vitamin D3] 25 mcg PO DAILY 01/22/22 06/18/23 Ibuprofen [Motrin] 600 mg PO Q6H PRN 01/22/22 06/18/23 Losartan Potassium 25 mg PO DAILY 01/22/22 06/18/23 Pnv No.95/Ferrous Fum/Folic AC 1 each PO DAILY 01/22/22 06/18/23 [ Caplet] methocarbamoL [Methocarbamol] 500 mg PO QID PRN 01/22/22 06/18/23 Escitalopram [Lexapro] See Rx Instructions .ROUTE .COMPLEX 04/16/23 06/18/23 - Allergies Allergies/Adverse Reactions: Allergies Allergy/AdvReac Type Severity Reaction Status Date / Time acetaminophen [From Vicodin] Allergy Unknown Verified 09/28/23 21:53 adhesive Allergy Rash Verified 09/28/23 21:53 codeine Allergy Rash Verified 09/28/23 21:53 hydrocodone bitartrate * Allergy Rash Verified 09/28/23 21:53 [From Vicodin] iron Allergy Rash Verified 09/28/23 21:53 oxycodone HCl * Allergy Hives Verified 09/28/23 21:53 [From Percocet] Penicillins Allergy Rash Verified 09/28/23 21:53 hydromorphone HCl * AdvReac Nausea Verified 09/28/23 21:53 [From Dilaudid] - Social History Does the pt smoke?: No Smoking Status: Never smoker Does the pt drink ETOH?: No Does the pt have substance abuse?: No - Immunizations Immunizations are current?: Yes - POLST Patient has POLST: No PD ED PE NORMAL - Vitals Vital signs reviewed: Yes - General General: Alert and oriented X 3, No acute distress, Well developed/nourished - HEENT HEENT: Atraumatic, PERRL, EOMI, Moist mucous membranes - Neck Neck: Supple, no meningeal sign - Cardiac Cardiac: Strong equal pulses - Respiratory Respiratory: No respiratory distress - Derm Derm: Normal color, Warm and dry, No rash - Extremities Extremities: No deformity, Normal ROM s pain, No edema, Other (The patient has normal-appearing left fourth and fifth toes. She has some mild tenderness over the toes but no tenderness along the fifth metatarsal bone. The remainder of the foot is without edema or tenderness to palpation. No tenderness ascending the leg.) - Neuro Neuro: Alert and oriented X 3 - Psych Psych: Normal mood, Normal affect Results - Vitals Vitals: Oxygen O2 Source Room air PD Medical Decision Making - ED course Complexity details: considered differential, d/w patient, d/w family ED course: I discussed with the patient that at this point in time, I do not find anything wrong with her foot. I have discussed with her that we can do x-rays, although I anticipate they will not be remarkable for anything acute, as the patient's foot pain is not acutely traumatic. The patient states that at this time, she will just go ahead and walk using her Walking boot and see if the pain goes away on its own. She also schedule a follow-up with her primary doctor. We have discussed the usual indications for return. Departure - Departure Disposition: 01 Home, Self Care Clinical Impression: Foot pain, left Condition: Stable Instructions: ED Sprain Toe Comments: At this point in time, given the lack of distinct trauma, it is unlikely that you have a break in any of the bones of your toes or your feet. It is not clear exactly what caused your pain to suddenly come on. It is possible that you may have sprained or strained some of the soft tissues in your foot when you stepped down but it is hard to say for sure. You may use ibuprofen and Tylenol as needed to help with the pain. You may also use ice packs and elevate the foot as needed. Please follow-up with your doctor as needed if the pain continues. You may use the walking boot that you have from your prior foot injury to help give your foot more support. Forms: PCP List Discharge Date/Time: 09/28/23 22:41
== END 2023-09-28 22:41 | disposition home or self-care (01) ==
LOC: ED 21:49
DX: M79.672 Pain in left foot (principal); I10 Essential (primary) hypertension
CPT/HCPCS: 99281; 99283

== ENCOUNTER 2024-03-27 15:43 | Outpatient (CLI) | payer OTHER ==
[2024-03-27 21:26] LABS: BACTERIAL VAGINOSIS DNA NEGATIVE (NEGATIVE); CANDIDA GLABRATA DNA NEGATIVE (NEGATIVE); CANDIDA GROUP DNA NEGATIVE (NEGATIVE); CANDIDA KRUSEI DNA NEGATIVE (NEGATIVE); TRICHOMONAS VAGINALIS DNA NEGATIVE (NEGATIVE)
== END 2024-03-27 15:44 | disposition home or self-care (01) ==
LOC: LAB.WC 15:43
PROVIDERS: ATTEND Obstetrics & Gynecology
DX: N89.8 Other specified noninflammatory disorders of vagina (principal)
CPT/HCPCS: 81514

== ENCOUNTER 2024-05-05 09:39 | Outpatient (CLI) | payer OTHER ==
--- NOTE | 2024-05-06 11:00 | Mammography Report ---
BILATERAL DIGITAL DIAGNOSTIC MAMMOGRAM 3D/2D WITH EXAGGERATED CC: 05/05/2024 CLINICAL: Palpable left breast lump. Baseline exam. No prior exams were available for comparison. Both breasts are heterogeneously dense, which may obscure small masses (category c / 51-75% glandular tissue). No significant masses, calcifications, or other findings are seen in either breast. IMPRESSION: INCOMPLETE: NEEDS ADDITIONAL IMAGING EVALUATION There is no abnormality seen in the left breast to correspond with the palpable abnormality, however, ultrasound is recommended. Based on the Tyrer Cuzick model (a risk assessment model) the patient's lifetime risk is 9.7% and her 10 year risk is 1.3%. According to the ACR, ACS, and NCCN guidelines, an annual breast MRI exam rishabh g with mammogram is recommended if the patient's lifetime risk is 20% or greater. This exam was interpreted at Station ID: [id number]. NOTE: For mammograms, a report in lay terms will be sent to the patient. Approximately 15% of breast malignancies will not be visualized mammographically. In the management of a palpable breast mass, a negative mammogram must not discourage biopsy of a clinically suspicious lesion. Electronically Signed By: Azam tabares/penrad:05/05/2024 10:44:32 ACR BI-RADS Category 0: Incomplete 3340F PARENCHYMAL PATTERN: (D) - The breast(s) demonstrate(s) heterogeneously dense fibroglandular parafshiny ma. BI-RADS CATEGORY: (0) - 0 Ultrasound [id number] Immediate follow-up LATERALITY: (B)
--- NOTE | 2024-05-06 11:00 | Ultrasound Report ---
LIMITED ULTRASOUND OF LEFT BREAST: 05/05/2024 CLINICAL: Palpable left breast lump. Comparison is made to exam dated: 05/05/2024 mammogram - [facility]. Color flow and real-time ultrasound of the left breast 4 o'clock region were performed. Galarza scale images of the real-time examination were reviewed. There is a 2.5 cm x 1.5 cm x 2.7 cm oval mass with a circumscribed margin in the far lateral left akbar st wall. This oval mass is isoechoic. This correlates as palpated. IMPRESSION: PROBABLY BENIGN The 2.5 cm x 1.5 cm x 2.7 cm oval mass in the left chest wall resembles a lipoma and is probably elma gn. A follow-up ultrasound in 6 months is recommended to demonstrate stability. Patient advised to return sooner for reimaging if this feels like it is enlarging. This exam was interpreted at Station ID: [id number]. Electronically Signed By: Azam Mack M.D. lc/:05/05/2024 10:46:37 Ultrasound BI-RADS: 3 Probably benign BI-RADS CATEGORY: (3) - 3 Ultrasound [id number] 6 month follow-up LATERALITY: (B)
== END 2024-05-05 09:40 | disposition home or self-care (01) ==
LOC: DI 09:39
PROVIDERS: ATTEND Obstetrics & Gynecology
DX: R22.2 Localized swelling, mass and lump, trunk (principal); R92.333 Mammographic heterogeneous density, bilateral breasts

== ENCOUNTER 2024-05-18 14:30 | Outpatient (CLI) | payer OTHER ==
--- NOTE | 2024-05-18 21:05 | XRAY Report ---
PROCEDURE: Knee 1-2V RT INDICATIONS: KNEE PAIN, RIGHT TECHNIQUE: 2 views of the knee(s) were acquired. COMPARISON: None. FINDINGS: Bones: No fractures or dislocations. No suspicious bony lesions. Partially visualized distal femo ral fixation. Hardware is intact without evidence of hardware fracture or periprosthetic lucency to s uggest loosening. Mild to moderate medial and lateral narrowing. Soft tissues: Mild knee joint effusion. No suspicious soft tissue calcifications or masses. IMPRESSION: Partially visualized distal femoral fixation. Mild effusion. Reviewed by: Ghazala Cristina MD on 05/18/2024 9:04 PM PDT Approved by: Ghazala Cristina MD on 05/18/2024 9:04 PM PDT Station ID: [id number]
== END 2024-05-18 14:45 | disposition home or self-care (01) ==
LOC: DI.N 14:30
PROVIDERS: ATTEND Physician Assistant Medical
DX: M25.461 Effusion, right knee (principal); M25.561 Pain in right knee

== ENCOUNTER 2024-05-21 19:09 | Emergency (ER) | payer OTHER ==
[2024-05-21 19:52] LABS: BASOPHILS # (AUTO) 0.1 10^3/uL (0.0-0.1); BASOPHILS % (AUTO) 0.6 %; EOSINOPHILS # (AUTO) 0.3 10^3/uL (0.0-0.7); EOSINOPHILS % (AUTO) 3.2 %; HCT - HEMATOCRIT 36.7 % (37.0-47.0); HGB - HEMOGLOBIN 11.6 g/dL (12.0-16.0); LYMPHOCYTES # (AUTO) 2.4 10^3/uL (1.5-3.5); LYMPHOCYTES % (AUTO) 27.8 %; MEAN CORPUSCULAR HEMOGLOBIN 25.4 pg (27.0-31.0); MEAN CORPUSCULAR HGB CONC 31.6 g/dL (32.0-36.0); MEAN CORPUSCULAR VOLUME 80.5 fL (81.0-99.0); MEAN PLATELET VOLUME 10.7 fL (7.9-10.8); MONOCYTES # (AUTO) 0.6 10^3/uL (0.0-1.0); MONOCYTES % (AUTO) 6.4 %; NEUTROPHILS # (AUTO) 5.3 10^3/uL (1.5-6.6); NEUTROPHILS % (AUTO) 61.8 %; PLT - PLATELET COUNT 288 10^3/uL (130-450); RED BLOOD COUNT 4.56 10^6/uL (4.20-5.40); RED CELL DISTRIBUTION WIDTH 13.9 % (12.0-15.0); WHITE BLOOD COUNT 8.6 x10^3/uL (4.8-10.8)
--- NOTE | 2024-05-21 19:52 | ED Physician Documentation ---
PD HPI CHEST PAIN - Stated complaint Stated Complaint: CHEST PX - Chief complaint Chief Complaint: Cardiac - History obtained from History obtained from: Patient - Additional information Additional information: She has a history of hypertension hypercholesterolemia and obesity but no hx heart issues or CAD. She presents with 6 days of episodic anterior chest wall pain described as a pressure. It last for minutes to hours at a time. It is not exertional and not associated with shortness of breath. There is no radiation to it. It is worse if she bends forward or lays flat. Denies pedal edema or calf pain. No history of thromboembolic disease. Her father does have a history of coronary disease starting in the age of 50. PD PAST MEDICAL HISTORY - Past Medical History Past Medical History: Yes Cardiovascular: Hypertension Respiratory: Asthma Endocrine/Autoimmune: None GI: GERD : Chronic bladder infection HEENT: Chronic vision loss, Chronic hearing loss Psych: Depression, Anxiety, Panic attacks Musculoskeletal: Chronic back pain Derm: None - Past Surgical History Past Surgical History: Yes /[employer]: Tubal ligation HEENT: Myringotomy (tubes) Derm: Skin grafts - Present Medications Home Medications: Ambulatory Orders Medication Instructions Recorded Confirmed Omeprazole [PriLOSEC] 20 mg PO DAILY 09/05/16 06/18/23 Albuterol Sulf [Ventolin Hfa 1 - 2 puffs INH Q4HR PRN #1 inhaler 11/14/18 06/18/23 Inhaler] Ascorbic Acid [Vitamin C] 500 mg PO DAILY 01/22/22 06/18/23 Cetirizine [ZyrTEC] 10 mg PO DAILY 01/22/22 06/18/23 Cholecalciferol [Vitamin D3] 25 mcg PO DAILY 01/22/22 06/18/23 Ibuprofen [Motrin] 600 mg PO Q6H PRN 01/22/22 06/18/23 Losartan Potassium 25 mg PO DAILY 01/22/22 06/18/23 Pnv No.95/Ferrous Fum/Folic AC 1 each PO DAILY 01/22/22 06/18/23 [ Caplet] methocarbamoL [Methocarbamol] 500 mg PO QID PRN 01/22/22 06/18/23 Escitalopram [Lexapro] See Rx Instructions .ROUTE .COMPLEX 04/16/23 06/18/23 - Allergies Allergies/Adverse Reactions: Allergies Allergy/AdvReac Type Severity Reaction Status Date / Time acetaminophen [From Vicodin] Allergy Unknown Verified 05/21/24 19:13 adhesive Allergy Rash Verified 05/21/24 19:13 codeine Allergy Rash Verified 05/21/24 19:13 hydrocodone bitartrate * Allergy Rash Verified 05/21/24 19:13 [From Vicodin] iron Allergy Rash Verified 05/21/24 19:13 oxycodone HCl * Allergy Hives Verified 05/21/24 19:13 [From Percocet] Penicillins Allergy Rash Verified 05/21/24 19:13 hydromorphone HCl * AdvReac Nausea Verified 05/21/24 19:13 [From Dilaudid] - Social History Does the pt smoke?: No Smoking Status: Never smoker Does the pt drink ETOH?: No Does the pt have substance abuse?: No - Immunizations Immunizations are current?: Yes - POLST Patient has POLST: No PD ED PE NORMAL - Vitals Vital signs reviewed: Yes - General General: Alert and oriented X 3, No acute distress - Cardiac Cardiac: RRR, No murmur, Other (Chest pain is reproducible with palpation of the anterior chest wall.) - Respiratory Respiratory: No respiratory distress, Clear bilaterally - Abdomen Abdomen: Non tender - Extremities Extremities: No edema, No calf tenderness / cord - Neuro Neuro: Alert and oriented X 3 Results - Vitals Vitals: Vital Signs - 24 hr 05/21/24 05/21/24 19:13 20:00 Temperature 36.5 C Heart Rate 80 74 Respiratory 18 21 Rate Blood Pressure 200/100 H 141/66 H O2 Saturation 99 100 Oxygen O2 Source Room air - EKG (time done) 1918 EKG releavant findings:: EKG personally interpreted by author of this note. Relevant findings are: Rate: Rate (enter#) (72) Rhythm: NSR [place]: Normal Intervals: Normal CA QRS: Normal Ischemia: Non specific changes. No: ST elevation c/w ischemia, ST depression - Labs Labs: Laboratory Tests 05/21/24 05/21/24 19:35 19:35 WBC 8.6 RBC 4.56 Hgb 11.6 L Hct 36.7 L MCV 80.5 L MCH 25.4 L MCHC 31.6 L RDW 13.9 Plt Count 288 MPV 10.7 Neut # (Auto) 5.3 Lymph # (Auto) 2.4 Hand # (Auto) 0.6 Eos # (Auto) 0.3 Baso # (Auto) 0.1 Absolute Nucleated RBC 0.00 Nucleated RBC % 0.0 Sodium 139 Potassium 3.7 Chloride 104 Carbon Dioxide 27 Anion Gap 8.0 BUN 12 Creatinine 0.8 Estimated GFR (MDRD) 79 L Glucose 113 H Calcium 9.7 Total Bilirubin 0.3 AST 12 ALT 18 Alkaline Phosphatase 86 Troponin I High Sens < 2.3 L Total Protein 7.1 Albumin 4.4 Globulin 2.7 Albumin/Globulin Ratio 1.6 Lipase 31 - Rads (name of study) Single view chest x-ray is unremarkable Relevant Findings:: Final report received, EMP independent interpretation of test PD Medical Decision Making - ED course ED course: She presents with chest pain of 6 days duration. It sounds musculoskeletal. Nothing to suggest PE or DVT or dissection. She is significantly hypertensive here. She says she did take her losartan today but has "whitecoat hypertension." CBC showing moderate microcytic anemia, no recent values for comparison, CMP and troponin were normal/negative. Heart score 2. PERC negative. Her blood pressure improved to about 140/60 without specific therapy in the emergency department. Departure - Departure Disposition: 01 Home, Self Care Clinical Impression: Chest wall pain Condition: Good Instructions: ED Chest Pain Costochondritis Comments: The description of the chest pain, location, reproducibility etc. would suggest that it is from the chest wall as opposed to something internal. You can take Tylenol or ibuprofen for this. Specific testing done on your heart was normal/negative. You are modestly anemic and your blood pressure was elevated, both of which deserve follow-up and attention from your primary care physician. Call your doctor to arrange a follow-up appointment, make the next available appointment. In the interim, return anytime if worse or if new symptoms develop. Forms: PCP List Discharge Date/Time: 05/21/24 20:26
--- NOTE | 2024-05-21 20:00 | XRAY Report ---
PROCEDURE: Chest 1V INDICATIONS: Chest pain TECHNIQUE: One view of the chest was acquired. COMPARISON: Chest radiograph 11/14/2018. FINDINGS: Surgical changes and devices: None. Lungs and pleura: No pleural effusions or pneumothorax. Lungs are clear. Mediastinum: Mediastinal contours appear normal. Heart size is normal. Bones and chest wall: No suspicious bony lesions. Overlying soft tissues appear unremarkable. IMPRESSION: No acute cardiopulmonary process. Reviewed by: Daniel Zazueta MD on 05/21/2024 7:59 PM PDT Approved by: Daniel Zazueta MD on 05/21/2024 7:59 PM PDT Station ID: [id number]
[2024-05-21 20:09] LABS: ALBUMIN 4.4 g/dL (3.2-5.5); ALBUMIN/GLOBULIN RATIO 1.6 (1.0-2.2); ALKALINE PHOSPHATASE 86 IU/L (42-121); ALT ALANINE AMINOTRANSFERASE 18 IU/L (10-60); AST ASPARTATE AMINOTRANSFERASE 12 IU/L (10-42); BILIRUBIN,TOTAL 0.3 mg/dL (0.2-1.0); BUN - BLOOD UREA NITROGEN 12 mg/dL (6-20); CALCIUM 9.7 mg/dL (8.5-10.3); CARBON DIOXIDE - CO2 27 mmol/L (21-32); CHLORIDE 104 mmol/L (101-111); CREATININE 0.8 mg/dL (0.6-1.3); GFR - MDRD 79 (>89); GLUCOSE 113 mg/dL (74-104); LIPASE 31 U/L (11-82); POTASSIUM 3.7 mmol/L (3.5-4.5); SODIUM 139 mmol/L (135-145); TOTAL PROTEIN 7.1 g/dL (6.4-8.9)
[2024-05-21 20:13] LABS: TROPONIN I HIGH SENSITIVITY < 2.3 ng/L (2.3-14.8)
[2024-05-21 20:28] VITALS: BP 141/66; O2SAT 100
== END 2024-05-21 20:26 | disposition home or self-care (01) ==
LOC: ED 19:09
DX: R07.89 Other chest pain (principal); I10 Essential (primary) hypertension; E78.00 Pure hypercholesterolemia, unspecified; K21.9 Gastro-esophageal reflux disease without esophagitis; D50.9 Iron deficiency anemia, unspecified; E66.9 Obesity, unspecified; Z68.41 Body mass index [BMI] 40.0-44.9, adult; Z79.899 Other long term (current) drug therapy; Z82.49 Family history of ischemic heart disease and other diseases of the circulatory system
CPT/HCPCS: 36415; 80053; 83690; 84484; 85025; 93005; 99283; 99284